=== PATIENT | female | born 1990 | race Two or more races ===

== ENCOUNTER 2017-01-04 09:24 | Emergency (ER) | payer OTHER ==
[~2017-01-04] VITALS: Ht 154.9 cm; Wt 86.2 kg
[2017-01-04] MEDS ORDERED: NKM (09:31)
[2017-01-04 09:36] VITALS: BP 120/70
[2017-01-04] MEDS ORDERED: Tetracaine 0.5% Opth Soln LEFT EYE ONE (09:45)
[2017-01-04] MEDS ORDERED: Fluorescein Strips LEFT EYE ONE (09:45)
[2017-01-04] MEDS ORDERED: OCUFLOX5 ML RIGHT EYE (10:16)
[2017-01-04 10:24] VITALS: BP 120/70
--- NOTE | 2017-01-05 07:15 | Emergency Room Report ---
History of Present Illness General Chief Complaint: Foreign Body Source: Patient Present Illness HPI 26-year-old female presents ED for evaluation. Patient states that there is something in her right eye. She was cutting her nails yesterday and thinks a nail hit her in the right eye. Feel something in her upper eyelid. Denies any pain. Denies any photophobia or blurry vision. Denies any discharge. No other aggravating relieving factors. Denies any other associated symptoms Allergies: Coded Allergies: No Known Allergies (Unverified , 01/04/17) Patient History Past Medical History: none Past Surgical History: none Pertinent Family History: none Social History: Denies: smoking, alcohol use, drug use Last Menstrual Period: Current Now: No Immunizations: UTD Reviewed Nursing Documentation: PMH: Agreed, PSxH: Agreed Nursing Documentation-PMH Past Medical History: No Stated History Review of Systems All Other Systems: negative except mentioned in HPI Physical Exam Vital Signs Date Time Temp Pulse Resp B/P (MAP) Pulse Ox O2 Delivery O2 Flow Rate FiO2 01/04/17 09:28 98.1 76 16 120/70 100 Room Air Sp02 EP Interpretation: reviewed, normal General Appearance: no apparent distress, alert, GCS 15, non-toxic Head: normocephalic Eyes: bilateral eye normal inspection, bilateral eye PERRL, bilateral eye fluoroscene uptake, bilateral eye EOMI, bilateral eye visual acuity ENT: hearing grossly normal, normal pharynx, no angioedema, normal voice Neck: full range of motion, supple/symm/no masses Respiratory: normal inspection Cardiovascular #1: normal inspection Gastrointestinal: normal inspection Rectal: deferred Genitourinary: no CVA tenderness Musculoskeletal: normal inspection Neurologic: alert, oriented x3, responsive, motor strength/tone normal, sensory intact, speech normal Psychiatric: normal inspection Skin: normal inspection Lymphatic: normal inspection Medical Decision Making Diagnostic Impression: Primary Impression: Foreign body in eye Qualified Codes: T15.91XA - Foreign body on external eye, part unspecified, right eye, initial encounter ER Course Hospital Course 26-year-old female presents to ED with R eye pain, feel something in his eye Differential diagnoses include: conjunctivitis, traumatic iritis, foreign body, corneal abrasion Clinical course Patient placed on stretcher. After initial history, I applied tetracaine and Fluorescin to the affected eye. Using Wood's lamp I examined the eyes, no evidence of corneal abrasion. I inverted eyelid and saw no evidence of foreign body. Diagnosis - foreign body in eye Stable and discharged to home with prescription for Ocuflox. Followup with PMD/ Optho. Return to ED if symptoms recur or worsen Last Vital Signs Date Time Temp Pulse Resp B/P (MAP) Pulse Ox O2 Delivery O2 Flow Rate FiO2 01/04/17 10:24 98.1 16 120/70 100 Room Air 01/04/17 09:28 76 Status: improved Disposition: HOME, SELF-CARE Condition: Stable Scripts Ofloxacin (OCUFLOX) 5 Ml Drops 1 DROP RIGHT EYE QID for 7 Days, ML Prov: RADHA ARNOLD M.D. 01/04/17 Patient Instructions: Eye Foreign Body, Mrol-on-Whyi RADHA ARNOLD M.D. Jan 05, 2017 07:15
== END 2017-01-04 10:25 | disposition home or self-care (01) ==
LOC: EMR 09:59
DX: T15.91XA Foreign body on external eye, part unspecified, right eye, initial encounter (principal); X58.XXXA Exposure to other specified factors, initial encounter; Y92.9 Unspecified place or not applicable
CPT/HCPCS: 99284